=== PATIENT | female | born 1975 | race Caucasian/White ===

== ENCOUNTER 2019-02-24 21:57 | Emergency (ER) | payer OTHER ==
[~2019-02-24] VITALS: Ht 165.1 cm; Wt 90.7 kg
[2019-02-24] MEDS ORDERED: HYDROCHLOROTHIA25 MG (22:13)
[2019-02-25] MEDS ORDERED: MEDROLPACK PO (02:06)
[2019-02-25] MEDS ORDERED: BETAMETHASONE D15 G3 TOP (02:06)
[2019-02-25] MEDS ORDERED: ZYRTEC10 M3 PO (02:06)
== END 2019-02-25 02:40 | disposition home or self-care (01) ==
LOC: ER 21:57
DX: T78.49XA Other allergy, initial encounter (principal); R21 Rash and other nonspecific skin eruption; I16.0 Hypertensive urgency; I10 Essential (primary) hypertension; X58.XXXA Exposure to other specified factors, initial encounter